=== PATIENT | female | born 1980 | race Caucasian/White ===

== ENCOUNTER 2020-07-12 13:07 | Emergency (ER) | payer BC ==
[~2020-07-12] VITALS: Ht 177.8 cm; Wt 118.0 kg
[2020-07-12 13:08] VITALS: BP 154/88
[2020-07-12] MEDS ORDERED: VALA10008 PO (13:20)
--- NOTE | 2020-07-12 13:20 | PHYS DOC ---
General Adult EDM: Chief Complaint: EYE PROBLEMS HPI: HPI: History is obtained for the patient. Patient is a 40-year-old female with a history of chickenpox who presents with left periorbital swelling and rash. She has noticed that progressing over the past 2 days. Denies any pain. States the area seems somewhat red with small blisters. Denies any vision changes. Denies any pain with extraocular eye movements. Denies any discharge from the eye. Denies any redness of the eye. Denies any trauma or injury. Denies any hearing loss or tinnitus. Denies neck pain. Denies headaches. Denies vomiting. Does wear corrective lenses. No other complaints. Review of Systems: Review of Systems: Constitutional: Denies fever or chills Eyes: Positive for periorbital swelling HENT: Denies nasal congestion or sore throat Respiratory: Denies cough or shortness of breath Cardiovascular: Denies chest pain or edema GI: Denies abdominal pain, nausea, vomiting, bloody stools or diarrhea : Denies dysuria Musculoskeletal: Denies back pain or joint pain Integument: Positive for rash Neurologic: Denies headache, focal weakness or sensory changes Endocrine: Denies polyuria or polydipsia Lymphatic: Denies swollen glands Psychiatric: Denies depression or anxiety Heart Score: Risk Factors: Risk Factors: DM, Current or recent (<one month) smoker, HTN, HLP, family history of CAD, obesity. Risk Scores: Score 0 - 3: 2.5% MACE over next 6 weeks - Discharge Home Score 4 - 6: 20.3% MACE over next 6 weeks - Admit for Clinical Observation Score 7 - 10: 72.7% MACE over next 6 weeks - Early Invasive Strategies Physical Exam: PE: Constitutional: Well developed, well nourished, no acute distress, non-toxic appearance. [] HENT: Normocephalic, atraumatic, bilateral external ears normal, oropharynx moist, no oral exudates, nose normal. Tympanic remains clear bilaterally. [] Eyes: Pupils 3 mm and briskly reactive bilaterally. No APD present. Visual acuity normal individually and bilaterally with corrective lenses in place. Left periorbital swelling noted. Erythematous and vesicular lesions noted in a dermatomal dissipation to the left superior forehead. No conjunctivitis present. No chemosis present. No hyphema noted. No hypopyon noted. No signs of discharge. Neck: Normal range of motion, no tenderness, supple, no stridor. [] Cardiovascular:Heart rate regular rhythm, no murmur [] Lungs & Thorax: Bilateral breath sounds clear to auscultation [] Abdomen: soft, no tenderness, no masses, no pulsatile masses. [] Skin: Warm, dry, no erythema, no rash. [] Back: No tenderness, no CVA tenderness. [] Extremities: No tenderness, no cyanosis, no clubbing, ROM intact, no edema. [] Neurologic: Alert and oriented X 3, normal motor function, normal sensory function, no focal deficits noted. [] Psychologic: Affect normal, judgement normal, mood normal. [] Current Patient Data: Vital Signs: Vital Signs Date Time Temp Pulse Resp B/P (MAP) Pulse Ox O2 Delivery O2 Flow Rate FiO2 07/12/20 13:08 97.6 92 16 154/88 (110) 99 Room Air EKG: EKG: [] Radiology/Procedures: Radiology/Procedures: [] Course & Med Decision Making: Course & Med Decision Making Pertinent Labs and Imaging studies reviewed. (See chart for details) [] Patient is a 40-year-old female who presents with chief complaint of left periorbital swelling and associated with rash. No clinical signs of bacterial infection. Rash is concerning for herpes zoster. Erythematous base with vesicular lesions noted does not cross midline of face. No signs of pain with extraocular eye movements. I do not feel this represents orbital cellulitis. Imaging will be deferred. Visual acuity was within normal limits and she denies any vision changes or eye pain. Patient was given her first dose of valacyclovir in the emergency department. She was explicitly instructed to follow-up with ophthalmology tomorrow morning. She states she does have an eye doctor and can call them. Return precautions discussed and understood. Stable for discharge home. Dandre Disclaimer: Dandre Disclaimer: This electronic medical record was generated, in whole or in part, using a voice recognition dictation system. Departure Departure: Impression: Primary Impression: Herpes zoster Qualified Codes: B02.9 - Zoster without complications Disposition: HOME/RESIDENCE PRIOR TO ADM Condition: STABLE Referrals: OJ MELENDREZ MD (PCP) SHEILA BUI DO Patient Instructions: Shingles Additional Instructions: Please follow-up with your eye doctor tomorrow morning. Please follow-up with your primary care physician in the next 2 to 3 days. Scripts Valacyclovir Hcl (VALACYCLOVIR) 1,000 Mg Tablet 1 TAB PO TID for zoster, #21 TAB Prov: SHARMAINE DOE DO 07/12/20 SHARMAINE DOE DO Jul 12, 2020 13:20
[2020-07-12] MEDS ORDERED: valACYclovir 500 MG TABLET. PO SCH (13:30)
== END 2020-07-12 13:34 | disposition home or self-care (01) ==
LOC: ER 13:07
DX: B02.9 Zoster without complications (principal)
CPT/HCPCS: 99283

== ENCOUNTER 2020-09-06 10:44 | Emergency (ER) | payer BC ==
[~2020-09-06] VITALS: Ht 177.8 cm; Wt 118.0 kg
[~2020-09-06 10:44] MED LIST: VALA10008 PO
--- NOTE | 2020-09-06 10:59 | PHYS DOC ---
Past History Past Medical History: No Pertinent History Past Surgical History: Cholecystectomy, Hysterectomy, Other Additional Past Surgical Histo: Breast Augmentation Alcohol Use: None Adult General Chief Complaint Chief Complaint: ABDOMINAL PAIN HPI HPI Patient is a 40-year-old female who presents with right lower quadrant pain. Onset of pain was this morning when she awoke from sleep with excruciating focal right lower quadrant pain that did not radiate. Nothing known makes better, she is attempted to eat but has not been able to tolerate this and subsequently caused her to become more nauseous and experienced several episodes of nonbloody nonbilious emesis. She has since had anorexic symptoms. She has no significant medical history, denies taking any daily medications, no recent fever or URI- like symptoms, no chest pain or shortness of breath, no changes in bladder or bowel function, no UTI-like symptoms, no vaginal discharge. She admits having a hysterectomy and gallbladder removal in the past. Review of Systems Review of Systems Fourteen body systems of review of systems have been reviewed. See HPI for pertinent positives and negative responses, other molina all other systems are negative, non-pertinent or non-contributory Allergies Allergies Allergies Coded Allergies Type Severity Reaction Last Updated Verified Penicillins Allergy Unknown 07/12/20 Yes Physical Exam Physical Exam Constitutional: Well developed, well nourished, moderate distress due to pain HENT: Normocephalic, atraumatic, bilateral external ears normal, oropharynx moist, no oral exudates, nose normal. Eyes: PERRLA, EOMI, conjunctiva normal, no discharge. Neck: Normal range of motion, no tenderness, supple, no stridor. Cardiovascular: Heart rate regular, sinus rhythm, no murmurs rubs or gallops Lungs & Thorax: Bilateral breath sounds clear to auscultation Abdomen: Bowel sounds normal, soft, tenderness to palpation of right lower quadrant positive McBurney point, negative Neil's sign, negative Rovsing sign, negative heel strike and obturator signs, guarding present without rebound, no masses, no pulsatile masses. Nonsurgical abdomen, no peritoneal signs Skin: Warm, dry, no erythema, no rash. Back: No tenderness, no CVA tenderness. Extremities: No tenderness, no cyanosis, no clubbing, ROM intact, no edema. Neurologic: Alert and oriented X 3, grossly normal motor & sensory function, no focal deficits noted. Psychologic: Affect normal, judgement normal, mood normal. Current Patient Data Vital Signs Vital Signs Date Time Temp Pulse Resp B/P (MAP) Pulse Ox O2 Delivery O2 Flow Rate FiO2 09/06/20 11:04 98.2 90 20 131/70 (90) 98 Lab Results Laboratory Tests Test 09/06/20 11:01 White Blood Count 17.0 x10^3/uL (4.0-11.0) Red Blood Count 4.96 x10^6/uL (3.50-5.40) Hemoglobin 13.8 g/dL (12.0-15.5) Hematocrit 42.4 % (36.0-47.0) Mean Corpuscular Volume 86 fL (79-100) Mean Corpuscular Hemoglobin 28 pg (25-35) Mean Corpuscular Hemoglobin Concent 33 g/dL (31-37) Red Cell Distribution Width 14.2 % (11.5-14.5) Platelet Count 341 x10^3/uL (140-400) Neutrophils (%) (Auto) 85 % (31-73) Lymphocytes (%) (Auto) 10 % (24-48) Monocytes (%) (Auto) 4 % (0-9) Eosinophils (%) (Auto) 1 % (0-3) Basophils (%) (Auto) 0 % (0-3) Neutrophils # (Auto) 14.4 x10^3uL (1.8-7.7) Lymphocytes # (Auto) 1.7 x10^3/uL (1.0-4.8) Monocytes # (Auto) 0.7 x10^3/uL (0.0-1.1) Eosinophils # (Auto) 0.1 x10^3/uL (0.0-0.7) Basophils # (Auto) 0.1 x10^3/uL (0.0-0.2) Segmented Neutrophils % 85 % (35-66) Band Neutrophils % 2 % (0-9) Lymphocytes % 10 % (24-48) Monocytes % 2 % (0-10) Eosinophils % 1 % (0-5) Platelet Estimate Adequate (ADEQUATE) Sodium Level 137 mmol/L (136-145) Potassium Level 4.2 mmol/L (3.5-5.1) Chloride Level 103 mmol/L (98-107) Carbon Dioxide Level 24 mmol/L (21-32) Anion Gap 10 (6-14) Blood Urea Nitrogen 13 mg/dL (7-20) Creatinine 1.0 mg/dL (0.6-1.0) Estimated GFR (Cockcroft-Gault) 61.7 BUN/Creatinine Ratio 13 (6-20) Glucose Level 101 mg/dL (70-99) Calcium Level 8.6 mg/dL (8.5-10.1) Total Bilirubin 0.4 mg/dL (0.2-1.0) Aspartate Amino Transf (AST/SGOT) 15 U/L (15-37) Alanine Aminotransferase (ALT/SGPT) 20 U/L (14-59) Alkaline Phosphatase 67 U/L (46-116) C-Reactive Protein 11.2 mg/L (0-3.3) Total Protein 7.6 g/dL (6.4-8.2) Albumin 3.8 g/dL (3.4-5.0) Albumin/Globulin Ratio 1.0 (1.0-1.7) EKG EKG [] Radiology/Procedures Radiology/Procedures EXAM: CT Abdomen and Pelvis without IV contrast INDICATION: Reason: RLQ pain Hx: Choleystectomy / Spl. Instructions: / History: TECHNIQUE: Multi-detector row CT images were acquired from the lung bases through the abdomen and pelvis without the use of IV contrast. Sagittal and coronal images were acquired from the transaxial data. All CT scans performed at this facility utilize dose optimization techniques as appropriate to the exam, including the following: Automated exposure control and adjustment of the mA and/or KV according to patient size (this includes techniques or standardized protocols for targeted exams where dose is indication/reason for exam). ORAL CONTRAST: None COMPARISON: None FINDINGS: The absence of IV contrast limits evaluation of soft tissue pathology. LOWER CHEST: Bilateral breast implants LIVER: Unremarkable BILIARY SYSTEM: Gallbladder is surgically absent. Bile ducts are not dilated. PANCREAS: Unremarkable SPLEEN: Unremarkable ADRENALS: Unremarkable KIDNEYS & URETERS: Unremarkable BLADDER: Unremarkable REPRODUCTIVE ORGANS: Absent uterus. Normal right ovary on CT. Left adnexal 6.5 cm cyst. GASTROINTESTINAL: Fibrofatty infiltration of the terminal ileum is present along with near complete spasm of the large bowel from the hepatic flexure through the rectosigmoid colon is present. No findings of bowel obstruction or perforation. The appendix is thickened to 1.6 cm in diameter and demonstrates abnormal pericholecystic soft tissue stranding. It is retrocecal in course. MESENTERY/PERITONEUM/RETROPERITONEUM: Small amount of pelvic free fluid is present. No organized fluid collection. VASCULAR: Unremarkable LYMPH NODES: Mildly reactive ileocolic chain lymph nodes. OSSEOUS & SOFT TISSUES: Unremarkable IMPRESSION: Acute uncomplicated retrocecal appendicitis. FOR INTERNAL CODING PURPOSES Critical result: Findings discussed with RAMON HOOKER at 09/06/2020 12:02 PM. RESULT CODE: (C) Heart Score Risk Factors: Risk Factors: DM, Current or recent (<one month) smoker, HTN, HLP, family history of CAD, obesity. Risk Scores: Risk Factors: DM, Current or recent (<one month) smoker, HTN, HLP, family history of CAD, obesity. Course & Med Decision Making Course & Med Decision Making Pertinent Labs and Imaging studies reviewed. (See chart for details) History, physical exam and diagnostic work-up consistent with acute appendicitis. Dr. Polanco, surgeon at [facility] contacted and agreed for transfer to his facility for surgical intervention. Dr. Yousif, Hospitalist at [facility] contacted and agreed to admission Patient has history of allergy to penicillin, cites prior history of anaphylaxis. Dose of cefoxitin given preoperatively prior to ER transport. Patient has received 1 L normal saline, a total of 8 mg IV morphine and 4 mg IV Zofran prior to ER transport in stable condition Dragon Disclaimer Dragon Disclaimer This electronic medical record was generated, in whole or in part, using a voice recognition dictation system. Departure Departure: Impression: Primary Impression: Acute appendicitis Disposition: 02 DC/TRF OTHER SHORT TERM HOS ([facility]) Admitting Physician: Other (Dr. Myers) Condition: STABLE Referrals: OJ MELENDREZ MD (PCP) RAMON HOOKER DO Sep 06, 2020 10:59
[2020-09-06 11:04] VITALS: BP 131/70
[2020-09-06] MEDS ORDERED: IV NORMAL SALINE 1,000ML 1,000 ML IV ONE (11:15)
[2020-09-06] MEDS ORDERED: MORPHINE SULFATE 4 MG/ML DISP.SYRIN. IV ONE ×2 (11:15→12:45)
[2020-09-06 11:18] LABS: BASO # 0.1 x10^3/uL (0.0-0.2); BASO % 0 % (0-3); EOS # 0.1 x10^3/uL (0.0-0.7); EOS % 1 % (0-3); HEMATOCRIT 42.4 % (36.0-47.0); HEMOGLOBIN 13.8 g/dL (12.0-15.5); LYMPH # 1.7 x10^3/uL (1.0-4.8); LYMPH % 10 % (24-48); MEAN CORPUSCULAR HEMOGLOBIN 28 pg (25-35); MEAN CORPUSCULAR HGB CONC 33 g/dL (31-37); MEAN CORPUSCULAR VOLUME 86 fL (79-100); MONO # 0.7 x10^3/uL (0.0-1.1); MONO % 4 % (0-9); NEUT # 14.4 x10^3uL (1.8-7.7); NEUT % 85 % (31-73); PLATELET COUNT 341 x10^3/uL (140-400); RED BLOOD COUNT 4.96 x10^6/uL (3.50-5.40); RED CELL DISTRIBUTION WIDTH 14.2 % (11.5-14.5)
[2020-09-06 11:29] LABS: CALCIUM 8.6 mg/dL (8.5-10.1); GFR 61.7; POTASSIUM 4.2 mmol/L (3.5-5.1)
[2020-09-06 11:34] LABS: ALBUMIN 3.8 g/dL (3.4-5.0); C REACTIVE PROTEIN 11.2 mg/L (0-3.3); TOTAL BILIRUBIN 0.4 mg/dL (0.2-1.0); TOTAL PROTEIN 7.6 g/dL (6.4-8.2)
[2020-09-06 12:03] LABS: % BANDS 2 % (0-9); % EOS 1 % (0-5); % LYMPHS 10 % (24-48); % MONOS 2 % (0-10); % SEGS 85 % (35-66); PLT ESTIMATE ADEQUATE (ADEQUATE)
--- NOTE | 2020-09-06 12:10 | RAD ---
EXAM: CT Abdomen and Pelvis without IV contrast INDICATION: Reason: RLQ pain Hx: Choleystectomy / Spl. Instructions: / History: TECHNIQUE: Multi-detector row CT images were acquired from the lung bases through the abdomen and pelvis without the use of IV contrast. Sagittal and coronal images were acquired from the transaxial data. All CT scans performed at this facility utilize dose optimization techniques as appropriate to the exam, including the following: Automated exposure control and adjustment of the mA and/or KV according to patient size (this includes techniques or standardized protocols for targeted exams where dose is indication/reason for exam). ORAL CONTRAST: None COMPARISON: None FINDINGS: The absence of IV contrast limits evaluation of soft tissue pathology. LOWER CHEST: Bilateral breast implants LIVER: Unremarkable BILIARY SYSTEM: Gallbladder is surgically absent. Bile ducts are not dilated. PANCREAS: Unremarkable SPLEEN: Unremarkable ADRENALS: Unremarkable KIDNEYS & URETERS: Unremarkable BLADDER: Unremarkable REPRODUCTIVE ORGANS: Absent uterus. Normal right ovary on CT. Left adnexal 6.5 cm cyst. GASTROINTESTINAL: Fibrofatty infiltration of the terminal ileum is present along with near complete spasm of the large bowel from the hepatic flexure through the rectosigmoid colon is present. No findings of bowel obstruction or perforation. The appendix is thickened to 1.6 cm in diameter and demonstrates abnormal pericholecystic soft tissue stranding. It is retrocecal in course. MESENTERY/PERITONEUM/RETROPERITONEUM: Small amount of pelvic free fluid is present. No organized fluid collection. VASCULAR: Unremarkable LYMPH NODES: Mildly reactive ileocolic chain lymph nodes. OSSEOUS & SOFT TISSUES: Unremarkable IMPRESSION: Acute uncomplicated retrocecal appendicitis. FOR INTERNAL CODING PURPOSES Critical result: Findings discussed with RAMON HOOKER at 09/06/2020 12:02 PM. RESULT CODE: (C) Electronically signed by: Mee Martinez MD (09/06/2020 12:07 PM) [id number]
[2020-09-06] MEDS ORDERED: PIPERACILLIN/TAZOBACTAM 4.5 GM in IV NORMAL SALINE 50ML 50 ML IV ONE (12:15)
[2020-09-06] MEDS ORDERED: ONDANSETRON PF 4 MG/2 ML VIAL. IVP ONE (12:30)
[2020-09-06 14:31] LABS: BACTERIA,URINE 0 /HPF (0-FEW); BILIRUBIN,URINE NEG (NEG); CLARITY,URINE CLEAR; COLOR,URINE YELLOW; GLUCOSE,URINE NEG (NEG); NITRITE,URINE NEG (NEG); RBC,URINE RARE /HPF (0-2); SQUAMOUS EPITHELIAL CELL,UR OCC /LPF; UROBILINOGEN,URINE 0.2 mg/dL (0.2 mg/dL); WBC,URINE RARE /HPF (0-4)
== END 2020-09-06 13:30 | disposition short-term general hospital (02) ==
LOC: ER 10:44
DX: K35.890 Other acute appendicitis without perforation or gangrene (principal); R10.31 Right lower quadrant pain; Z20.818 Contact with and (suspected) exposure to other bacterial communicable diseases; R11.2 Nausea with vomiting, unspecified; Z90.710 Acquired absence of both cervix and uterus; Z90.49 Acquired absence of other specified parts of digestive tract; Z98.890 Other specified postprocedural states; Z88.0 Allergy status to penicillin
CPT/HCPCS: 36415; 74176; 80053; 81001; 85007; 85025; 86140; 87426; 96361; 96365; 96375; 96376; 99285; C9803; J0694; J2270; J2405; J7030; U0003